=== PATIENT | female | born 1990 | race Asian ===

== ENCOUNTER 2019-09-25 00:59 | Emergency (ER) | payer OTHER ==
[2019-09-25] MEDS ORDERED: Lidocaine 2% VISCOUS* 15 ML UDC PO ONE (01:31)
[2019-09-25] MEDS ORDERED: Al Hydrox/Mg Hydrox/Simet LIQ* 30 ML UDC PO ONE (01:31)
[2019-09-25] MEDS ORDERED: NS 0.9% 1000 ML** 1,000 ML IV ONE (01:32)
[2019-09-25] MEDS ORDERED: Ketorolac INJ* 30 MG/ML 1 ML VIAL IV PUSH ONE (01:32)
--- NOTE | 2019-09-25 02:12 | ED ---
Abdominal Pain/Female - HPI Summary HPI Summary: 28 year old F presenting to [facility] via private car with a chief complaint of abdominal pain. The patient rates the pain 10/10 in severity. The patient had a PMHx of gall sludge 3 years ago, however she has not felt this severity of pain before. The patient believes that her symptoms may have been due to her recent consumption of greasy foods ([employer] for dinner this evening). The patient feels nauseous, however she has not vomited yet. The patient has no Hx of ulcers , GI bleeding and no other medical conditions. The patient denies having a cough , fever, or SOB. - History of Current Complaint Chief Complaint: EDAbdPain Stated Complaint: GALLBLADDER PAIN PER PT Time Seen by Provider: 09/25/19 01:12 Hx Obtained From: Patient Onset/Duration: Sudden Onset, Still Present Severity Currently: Severe Pain Intensity: 10 Pain Scale Used: 0-10 Numeric Associated Signs and Symptoms: Positive: Nausea. Negative: Fever, Cough, Vomiting, Other: - SOB Allergies/Adverse Reactions: Allergies Allergy/AdvReac Type Severity Reaction Status Date / Time No Known Allergies Allergy Verified 09/25/19 01:03 PMH/Surg Hx/FS Hx/Imm Hx GI History: Reports: Other GI Disorders - Gall sludge Sensory History: Denies: Hx Legally Blind Opthamlomology History: Denies: Hx Legally Blind Infectious Disease History: No Infectious Disease History: Denies: Traveled Outside the [place] in Last 30 Days - Family History Known Family History: Negative: Diabetes - Social History Alcohol Use: None Substance Use Type: Reports: None Smoking Status (MU): Never Smoked Tobacco Review of Systems Negative: Fever Negative: Shortness Of Breath, Cough Positive: Abdominal Pain, Nausea. Negative: Vomiting All Other Systems Reviewed And Are Negative: Yes Physical Exam - Summary Physical Exam Summary: Constitutional: Well-developed, Well-nourished, Alert. (-) Distressed Skin: Warm, Dry HENT: Normocephalic; Atraumatic Eyes: Conjunctiva normal Neck: Musculoskeletal ROM normal neck. (-) JVD, (-) Stridor, (-) Tracheal deviation Cardio: Rhythm regular, rate normal, Heart sounds normal; Intact distal pulses; The pedal pulses are 2+ and symmetric. Radial pulses are 2+ and symmetric. (-) Murmur Pulmonary/Chest wall: Effort normal. (-) Respiratory distress, (-) Wheezes, (-) Rales Abd: Soft, (+) epigastric tenderness, (-) Distension, (-) Guarding, (-) Rebound. Normal bowel sounds. Musculoskeletal: (-) Edema Lymph: (-) Cervical adenopathy Neuro: Alert, Oriented x3 Psych: Mood and affect Normal Triage Information Reviewed: Yes Vital Signs On Initial Exam: Initial Vitals Temp Pulse Resp BP Pulse Ox 97.4 F 75 18 111/72 99 09/25/19 01:01 09/25/19 01:01 09/25/19 01:01 09/25/19 01:01 09/25/19 01:01 Vital Signs Reviewed: Yes Procedures - Sedation Patient Received Moderate/Deep Sedation with Procedure: No Diagnostics - Vital Signs Vital Signs Temp Pulse Resp BP Pulse Ox 09/25/19 01:01 97.4 F 75 18 111/72 99 - Laboratory Lab Statement: Any lab studies that have been ordered have been reviewed, and results considered in the medical decision making process. Re-Evaluation - Re-Evaluation First Eval Re-Evaluation Time: 02:56 Change: Improved Comment: Patient reports improvement of Sx after medications, patient discharged to home. Abdominal Pain Fem Course/Dx - Course Course Of Treatment: 28 year old F presenting to [facility] via private car with a chief complaint of abdominal pain. The patient rates the pain 10/10 in severity. The patient had a PMHx of gall sludge 3 years ago, however she has not felt this severity of pain before. The patient believes that her symptoms may have been due to her recent consumption of greasy foods ([employer] for dinner this evening). The patient feels nauseous, however she has not vomited yet. The patient has no Hx of ulcers, GI bleeding and no other medical conditions. The patient denies having a cough, fever, or SOB. The patient was postive for epigastric tenerness. During ED course, patient received fluids, Lidocaine 15 mL PO, Toradol 30 mg IV, and Maalox 30 mL with improvement of Sx. Patient was discharged to home with PCP followup as needed. - Diagnoses Provider Diagnoses: Dyspepsia Discharge ED - Sign-Out/Discharge Documenting (check all that apply): Patient Departure - discharge - Discharge Plan Condition: Stable Disposition: HOME Patient Education Materials: Indigestion (ED) Referrals: [facility] [Outside] - If Needed Additional Instructions: PLEASE RETURN TO ED FOR ANY NEW OR WORSENING SYMPTOMS. PLEASE FOLLOWUP WITH YOUR PRIMARY CARE PHYSICIAN NEEDED. - Billing Disposition and Condition Condition: STABLE Disposition: Home - Attestation Statements Document Initiated by Scribe: Yes Documenting Scribe: ANAMARIA BOND Provider For Whom Scribe is Documenting (Include Credential): ANNE MARIE MESSINA DO Scribe Attestation: ANAMARIA Sweeney, scribed for ANNE MARIE MESSINA DO on at [id number]. Scribe Documentation Reviewed: Yes Provider Attestation: The documentation as recorded by the ANAMARIA ramos accurately reflects the service I personally performed and the decisions made by ANNE MARIE hart DO Status of Scribe Document: Viewed
[2019-09-25 03:13] VITALS: BP 101/69
== END 2019-09-25 03:12 | disposition home or self-care (01) ==
LOC: ED 00:59 → EDBD 00:59 → ED 03:12
DX: R10.13 Epigastric pain (principal); R10.9 Unspecified abdominal pain; R11.0 Nausea
CPT/HCPCS: 96361; 96374; 99282; A9270-GY; J1885